=== PATIENT | female | born 1970 | race Caucasian/White ===

== ENCOUNTER 2017-06-17 10:39 | Outpatient (CLI) | payer MEDICAID ==
[2017-06-21 19:11] LABS: 18 KD (IGG) BAND REACTIVE; 23 KD (IGG) BAND REACTIVE; 28 KD (IGG) BAND NON-REACTIVE; 30 KD (IGG) BAND NON-REACTIVE; 39 KD (IGG) BAND NON-REACTIVE; 41 KD (IGG) BAND REACTIVE; 41 KD (IGM) BLOT REACTIVE; 45 KD (IGG) BAND NON-REACTIVE; 58 KD (IGG) BAND NON-REACTIVE; 66 KD (IGG) BAND REACTIVE; 93 KD (IGG) BAND REACTIVE
== END 2017-06-17 10:40 | disposition home or self-care (01) ==
LOC: LAB.F 10:39
DX: Z91.89 Other specified personal risk factors, not elsewhere classified (principal)
CPT/HCPCS: 36415; 86617

== ENCOUNTER 2017-10-03 03:20 | Outpatient (CLI) | payer MEDICAID | END 2017-10-03 03:21 | disposition critical access hospital (66) | LOC: EMS 03:20 | PROVIDERS: ATTEND Surgery | DX: T82.897A Other specified complication of cardiac prosthetic devices, implants and grafts, initial encounter (principal) | CPT/HCPCS: A0425; A0427 ==

== ENCOUNTER 2017-10-03 04:03 | Emergency (ER) | payer MEDICAID ==
--- NOTE | 2017-10-03 04:30 | ED Physician Documentation ---
PD HPI CHEST PAIN - Stated complaint Stated Complaint: DEFIB - History obtained from History obtained from: Patient, EMS - History of Present Illness Timing - onset: Today Timing - onset during: Rest Timing - details: Abrupt onset Quality: Pressure, Aching, Sharp Location: Left chest Associated symptoms: Palpitations Similar symptoms before: Work up / diagnostics, Treatment Recently seen: Not recently seen - Additional information Additional information: patient is a 47 year old female with a history of chf and cardiomyopathy with a pacemaker in place who is presenting to the emergency department for multiple episodes of defibrillation. According to patient and ems patient states that she had at least 6 shocks before ems arrived. When ems arrived they did see v= tach, and the defibrillator went off. They treated patient with lidocaine 100mg bolus. Patient had another run so they gave another 50 and started the lidocaine drip. after starting the lidocaine drip patient has had no other episodes of v tach. patient did admit to smoking marijuana when asked about methamphetamines patient stated that the neighbor's dog and she smoked something but it wasn't crack. Review of Systems Constitutional: denies: Fever, Chills Eyes: denies: Decreased vision, Photophobia Ears: reports: Reviewed and negative Nose: reports: Reviewed and negative Throat: denies: Sore throat Cardiac: reports: Chest pain / pressure, Palpitations Respiratory: denies: Dyspnea, Cough, Wheezing GI: denies: Nausea, Vomiting : reports: Reviewed and negative Skin: reports: Rash, Lesions Musculoskeletal: denies: Neck pain, Back pain, Extremity pain Neurologic: denies: Generalized weakness, Focal weakness, Near syncope, Syncope Immunocompromised: denies: Immunocompromised PD PAST MEDICAL HISTORY - Past Medical History Cardiovascular: Congestive heart failure, Other Respiratory: None Neuro: Fainting Endocrine/Autoimmune: None GI: None : None HEENT: None Psych: Depression, Anxiety Musculoskeletal: Chronic back pain Derm: None - Past Surgical History Past Surgical History: Yes Ortho: Other Cardiovascular: AICD - Present Medications Home Medications: Ambulatory Orders Medication Instructions Recorded Confirmed Carvedilol 25 mg PO DAILY 04/05/16 04/05/16 - Allergies Allergies/Adverse Reactions: Allergies Allergy/AdvReac Type Severity Reaction Status Date / Time No Known Drug Allergies Allergy Verified 08/03/15 22:32 - Social History Does the pt smoke?: Yes Smoking Status: Current every day smoker Does the pt drink ETOH?: Yes Does the pt have substance abuse?: Yes - Immunizations Immunizations are current?: Yes - POLST Patient has POLST: No PD ED PE NORMAL - Vitals Vital signs reviewed: Yes - HEENT HEENT: Atraumatic - Neck Neck: Supple, no meningeal sign, No JVD - Abdomen Abdomen: Soft, Non tender, Non distended - Extremities Extremities: Normal ROM s pain, No calf tenderness / cord - Neuro Neuro: Alert and oriented X 3, No motor deficit, No sensory deficit Eye Opening: Spontaneous Motor: Obeys Commands Verbal: Oriented GCS Score: 15 PD ED PE EXPANDED - General General: Alert, Disheveled, poorly kept - HEENT HEENT: Other (poor dentition) - Cardiac Cardiac: Tachy - Derm Derm: Rash (rashes on patient's arms) Results - Vitals Vitals: Vital Signs - 24 hr 10/03/17 10/03/17 04:03 04:48 Temperature 38.7 C H Heart Rate 109 H 105 H Respiratory 18 18 Rate Blood Pressure 121/87 H 132/71 H O2 Saturation 100 100 Oxygen O2 Source Room air - EKG (time done) 0414 Rate: Rate (enter#) (107) Rhythm: Paced PD MEDICAL DECISION MAKING - ED course Complexity details: reviewed old records, reviewed results, re-evaluated patient , considered differential, d/w patient, d/w bank consultant ED course: Patient was seen and examined at bedside. patient was placed on a monitor and the lidocaine drip was continued. ekg showed a paced rhythm. Patient refused lab draw and chest x-ray. was consulted and the case was discussed with Dr. Higgins who excepted the patient. Patient had no further episodes of vtach while in the emergency department. patient required no further work up and was stable for critical care transfer. Departure - Departure Disposition: 02 Transfer Acute Care Hosp Clinical Impression: Defibrillator discharge Condition: Critical
[2017-10-03 04:48] VITALS: BP 132/71
[2017-10-03] MEDS ORDERED: LIDOCAINE 2000 MG/500 ML 2,000 MG/500 ML BAG IV STA (05:01)
[2017-10-03 05:42] LABS: BASOPHILS # (AUTO) 0.1 10^3/uL (0.0-0.1); BASOPHILS % (AUTO) 0.4 %; HGB - HEMOGLOBIN 11.4 g/dL (12.0-16.0); LYMPHOCYTES # (AUTO) 0.4 10^3/uL (1.5-3.5); LYMPHOCYTES % (AUTO) 2.5 %; MEAN CORPUSCULAR HEMOGLOBIN 29.2 pg (27.0-31.0); MEAN CORPUSCULAR HGB CONC 32.6 g/dL (32.0-36.0); MEAN CORPUSCULAR VOLUME 89.8 fL (81.0-99.0); MEAN PLATELET VOLUME 8.4 fL (7.9-10.8); MONOCYTES # (AUTO) 0.9 10^3/uL (0.0-1.0); MONOCYTES % (AUTO) 5.5 %; NEUTROPHILS # (AUTO) 14.4 10^3/uL (1.5-6.6); NEUTROPHILS % (AUTO) 91.6 %; PLT - PLATELET COUNT 244 10^3/uL (130-450); RED BLOOD COUNT 3.91 10^6/uL (4.20-5.40); RED CELL DISTRIBUTION WIDTH 14.8 % (12.0-15.0); WHITE BLOOD COUNT 15.7 x10^3/uL (4.8-10.8)
[2017-10-03 05:46] LABS: BILIRUBIN,URINE NEGATIVE (NEGATIVE); GLUCOSE, URINE (UA) NEGATIVE (NEGATIVE); KETONES,URINE (UA) 40 mg/dL (NEGATIVE); LEUKOCYTE ESTERASE, URINE NEGATIVE (NEGATIVE); NITRITE,URINE NEGATIVE (NEGATIVE); OCCULT BLOOD,URINE TRACE-LYSE (NEGATIVE); PROTEIN,URINE 30 mg/dL (NEGATIVE); UROBILINOGEN,URINE 0.2 (NORMAL) E.U./dL (NORMAL)
[2017-10-03 05:50] LABS: CLARITY,URINE CLEAR (CLEAR); HCG UR QUAL NEGATIVE
[2017-10-03 05:53] LABS: ALBUMIN 3.6 g/dL (3.2-5.5); ALKALINE PHOSPHATASE 94 IU/L (42-121); ALT ALANINE AMINOTRANSFERASE 32 IU/L (10-60); AST ASPARTATE AMINOTRANSFERASE 53 IU/L (10-42); BILIRUBIN,TOTAL 0.8 mg/dL (0.2-1.0); BUN - BLOOD UREA NITROGEN 18 mg/dL (6-20); CALCIUM 8.5 mg/dL (8.5-10.3); CARBON DIOXIDE - CO2 20 mmol/L (21-32); CHLORIDE 101 mmol/L (101-111); CREATININE 0.8 mg/dL (0.4-1.0); GFR - MDRD 78 (>89); GLUCOSE 165 mg/dL (70-100); MAGNESIUM 1.8 mg/dL (1.7-2.8); PHOSPHORUS 2.1 mg/dL (2.5-4.6); SODIUM 132 mmol/L (135-145); TOTAL PROTEIN 7.1 g/dL (6.7-8.2)
[2017-10-03 05:54] LABS: LIPASE < 10 U/L (22-51)
[2017-10-03 05:54] LABS: MUDS CUTOFF CONCENTRATIONS CUTOFF CONC BELOW:
[2017-10-03 05:56] LABS: BACTERIA,URINE None Seen /HPF (None Seen); MUCUS,URINE Moderate Strands; RBC,URINE 0-5 /HPF (0-5); SQUAMOUS EPITHELIAL CELL,UR FEW Squamous (<= Few)
[2017-10-03 05:58] LABS: AMPHETAMINE SCREEN,URINE POSITIVE (NEGATIVE); BENZODIAZEPINES SCREEN, URINE NEGATIVE (NEGATIVE); COCAINE SCREEN URINE NEGATIVE (NEGATIVE); METHADONE SCREEN, URINE NEGATIVE (NEGATIVE); METHAMPHETAMINES SCREEN, URINE POSITIVE (NEGATIVE); OPIATE SCREEN, URINE NEGATIVE (NEGATIVE); OXYCODONE SCREEN, URINE NEGATIVE (NEGATIVE); PROPOXYPHENE SCREEN, URINE NEGATIVE (NEGATIVE); TRICYCLIC ANTIDEPRESSANT,URINE NEGATIVE (NEGATIVE)
== END 2017-10-03 06:30 | disposition short-term general hospital (02) ==
LOC: EDUNIT# → ED 04:03
DX: I47.2 Ventricular tachycardia (principal); Z95.810 Presence of automatic (implantable) cardiac defibrillator; R07.89 Other chest pain; I42.9 Cardiomyopathy, unspecified; I50.9 Heart failure, unspecified; F17.200 Nicotine dependence, unspecified, uncomplicated; R21 Rash and other nonspecific skin eruption
CPT/HCPCS: 36415; 80053; 80306; 80320; 81001; 81003; 81025; 83690; 83735; 84100; 84443; 84484; 85025; 87086; 93005; 99284; 99285

== ENCOUNTER 2017-10-03 06:25 | Outpatient (CLI) | payer MEDICAID | END 2017-10-03 06:26 | disposition short-term general hospital (02) | LOC: EMS 06:25 | PROVIDERS: ATTEND Surgery | DX: T82.897A Other specified complication of cardiac prosthetic devices, implants and grafts, initial encounter (principal) | CPT/HCPCS: A0170; A0425; A0427 ==

== ENCOUNTER 2018-04-23 13:35 | Outpatient (CLI) | payer MEDICAID | END 2018-04-23 13:36 | disposition critical access hospital (66) | LOC: EMS 13:35 | PROVIDERS: ATTEND Surgery | DX: S09.93XA Unspecified injury of face, initial encounter (principal); Y04.2XXA Assault by strike against or bumped into by another person, initial encounter; W18.39XA Other fall on same level, initial encounter; Y92.009 Unspecified place in unspecified non-institutional (private) residence as the place of occurrence of the external cause | CPT/HCPCS: A0425; A0429; A0999 ==

== ENCOUNTER 2018-04-23 14:15 | Emergency (ER) | payer MEDICAID ==
[2018-04-23] MEDS ORDERED: HYDROcod/ACETAM 5/325 MG TABLET PO STA (14:25)
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
--- NOTE | 2018-04-23 15:43 | XRAY Report ---
Procedure Date: 04/23/2018 Accession Number: [id number] / [id number] Procedure: XR - Shoulder 3 View LT CPT Code: FULL RESULT: EXAM: LEFT SHOULDER RADIOGRAPHY EXAM DATE: 04/23/2018 03:03 PM. CLINICAL HISTORY: Left shoulder pain. COMPARISON: None. TECHNIQUE: 3 views. FINDINGS: Bones: Normal. No fracture or bone lesion. Joints: Minor degenerative changes are seen in the left shoulder joint. Alignment is preserved. Soft tissues: Left sided cardiac implant is in place. IMPRESSION: No acute findings. RAD[facility]
--- NOTE | 2018-04-23 15:44 | XRAY Report ---
Procedure Date: 04/23/2018 Accession Number: [id number] / [id number] Procedure: XR - Chest 1 View X-Ray CPT Code: 81303 FULL RESULT: EXAM: CHEST RADIOGRAPHY EXAM DATE: 04/23/2018 03:03 PM. CLINICAL HISTORY: Right-sided chest pain. COMPARISON: None. TECHNIQUE: 1 view. FINDINGS: Lungs/Pleura: No focal opacities evident. No pleural effusion. No pneumothorax. Mediastinum: Within exam limitations, the cardiomediastinal contour is normal. Other: Left sided cardiac implant is in place with leads projecting over right atrium, coronary sinus, and right ventricular apex. IMPRESSION: No acute cardiopulmonary abnormality demonstrated. Left-sided cardiac implant appears intact. RADIA
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
[2018-04-23 17:01] VITALS: BP 137/74
== END 2018-04-23 17:00 | disposition home or self-care (01) ==
LOC: ED 14:15
DX: S00.83XA Contusion of other part of head, initial encounter (principal); S02.5XXA Fracture of tooth (traumatic), initial encounter for closed fracture; S09.90XA Unspecified injury of head, initial encounter; M25.512 Pain in left shoulder; Y04.8XXA Assault by other bodily force, initial encounter; F17.200 Nicotine dependence, unspecified, uncomplicated; Z95.810 Presence of automatic (implantable) cardiac defibrillator
CPT/HCPCS: 70450; 70486; 71045; 73030; 93005; 99283; 99284; A9270

== ENCOUNTER 2018-05-01 15:42 | Outpatient (CLI) | payer MEDICAID ==
[2018-05-01 17:58] LABS: BASOPHILS # (AUTO) 0.1 10^3/uL (0.0-0.1); BASOPHILS % (AUTO) 1.2 %; EOSINOPHILS # (AUTO) 0.4 10^3/uL (0.0-0.7); EOSINOPHILS % (AUTO) 5.7 %; HGB - HEMOGLOBIN 12.8 g/dL (12.0-16.0); LYMPHOCYTES # (AUTO) 2.1 10^3/uL (1.5-3.5); LYMPHOCYTES % (AUTO) 34.1 %; MEAN CORPUSCULAR HGB CONC 33.4 g/dL (32.0-36.0); MEAN CORPUSCULAR VOLUME 89.6 fL (81.0-99.0); MEAN PLATELET VOLUME 8.6 fL (7.9-10.8); MONOCYTES # (AUTO) 0.5 10^3/uL (0.0-1.0); MONOCYTES % (AUTO) 7.6 %; NEUTROPHILS # (AUTO) 3.1 10^3/uL (1.5-6.6); NEUTROPHILS % (AUTO) 51.4 %; PLT - PLATELET COUNT 332 10^3/uL (130-450); RED BLOOD COUNT 4.29 10^6/uL (4.20-5.40); RED CELL DISTRIBUTION WIDTH 15.4 % (12.0-15.0); WHITE BLOOD COUNT 6.1 x10^3/uL (4.8-10.8)
[2018-05-01 19:06] LABS: ALBUMIN 3.9 g/dL (3.2-5.5); BILIRUBIN,TOTAL 0.5 mg/dL (0.2-1.0); CALCIUM 9.2 mg/dL (8.5-10.3); CREATININE 0.8 mg/dL (0.4-1.0); TOTAL PROTEIN 7.8 g/dL (6.7-8.2)
[2018-05-01 19:19] LABS: THYROID STIMULATING HORMONE 2.76 uIU/mL (0.34-5.60)
[2018-05-01 19:21] LABS: FREE T4 (FREE THYROXINE) 0.94 ng/dL (0.58-1.64)
== END 2018-05-01 15:43 | disposition home or self-care (01) ==
LOC: LAB.S 15:42
PROVIDERS: ATTEND Internal Medicine Cardiovascular Disease
DX: I42.9 Cardiomyopathy, unspecified (principal)
CPT/HCPCS: 36415; 80053; 84439; 84443; 85025

== ENCOUNTER 2018-10-15 17:11 | Outpatient (CLI) | payer MEDICAID | END 2018-10-15 17:12 | disposition home or self-care (01) | LOC: EMS 17:11 | PROVIDERS: ATTEND Surgery | DX: T82.9XXA Unspecified complication of cardiac and vascular prosthetic device, implant and graft, initial encounter (principal); Z95.810 Presence of automatic (implantable) cardiac defibrillator | CPT/HCPCS: A0425; A0429 ==

== ENCOUNTER 2022-04-23 15:14 | Outpatient (CLI) | payer MEDICAID | END 2022-04-23 15:15 | disposition critical access hospital (66) | LOC: EMS 15:14 | DX: Z04.1 Encounter for examination and observation following transport accident (principal); R07.89 Other chest pain; M54.9 Dorsalgia, unspecified; M54.2 Cervicalgia | CPT/HCPCS: A0425; A0427; A0999 ==

== ENCOUNTER 2022-11-28 07:13 | Outpatient (CLI) | payer MEDICAID | END 2022-11-28 23:59 | disposition short-term general hospital (02) | LOC: EMS 07:13 | DX: R05.9 Cough, unspecified (principal); R06.09 Other forms of dyspnea; R00.0 Tachycardia, unspecified; R50.9 Fever, unspecified | CPT/HCPCS: A0425; A0429; A0999 ==